=== PATIENT | female | born 1970 | race Caucasian/White ===

== ENCOUNTER 2016-03-23 13:08 | Inpatient (IN) | payer MEDICARE, MEDICAID ==
[~2016-03-23] VITALS: Ht 165.1 cm; Wt 67.3 kg
[~2016-03-23 13:08] MED LIST: ALPR0.5T PO; AMLO10TA2 PO; FENO130C6 PO; FURO80TA3 PO; GABA800T97 PO; INSUINJ37 SUBCUT; LIS10T PO; METF1000 PO; NOR10T PO; OMEP20CA5 PO
[2016-03-23 14:07] LABS: Basophils # (auto) 0 uL; Basophils % (auto) 0.2 % (0.0-2.0); Eosinophils # (auto) 0.1 uL; Eosinophils % (auto) 1.3 % (0.0-7.0); Hematocrit 32.4 % (36.0-46.0); Hemoglobin 10.1 g/dL (12.2-16.2); Lymphocytes # (auto) 0.9 uL; Lymphocytes % (auto) 9.9 % (10.0-50.0); Mean Corpuscular Hemoglobin 29.8 pg (28.0-32.0); Mean Corpuscular Hgb Conc. 31.2 g/dL (32.0-36.0); Mean Corpuscular Volume 95.6 fL (80.0-100.0); Mean Platelet Volume 7.9 fL (7.4-10.4); Monocytes # (auto) 0.4 uL; Monocytes % (auto) 4.5 % (0.0-12.0); Neutrophils # (auto) 7.8 uL; Neutrophils % (auto) 84.1 % (37.0-80.0); Platelet Count (auto) 211 10^3/uL (140-450); Red Cell Distribution Width 15.4 % (11.6-16.0); White Blood Cell 9.2 10^3/uL (4.4-10.8)
[2016-03-23 14:26] LABS: Albumin 2.9 g/dL (3.4-5.0); Calcium 7.8 mg/dL (8.5-10.1); Potassium 4.1 mmol/L (3.5-5.1)
[2016-03-23 14:29] LABS: Bilirubin, Total 0.3 mg/dL (0.2-1.0); Total Protein 7.3 g/dL (6.4-8.2)
[2016-03-23] MEDS ORDERED: ALUM & MAG HYDROX-SIMETH LIQ(MAALOX) 30 ML PO ONE (17:30)
[2016-03-23] MEDS ORDERED: DONNATAL 5ml ORAL Elix (BELLADONNA ALK-PHENOBARB) PO ONE (17:30)
[2016-03-23] MEDS ORDERED: PANTOPRAZOLE SODIUM 40 MG/10 ML VIAL IV ONE (17:30)
[2016-03-23] MEDS ORDERED: ONDANSETRON HCL 4 MG/2 ML VIAL IV ONE (17:30)
[2016-03-23] MEDS ORDERED: LIDOCAINE VISCOUS 2% 15ML UD PO ONE (17:30)
[2016-03-23] MEDS ORDERED: HYDROmorphone HCL 2 MG/ML VL IV ONE (17:30)
[2016-03-23] MEDS ORDERED: ACETAMINOPHEN 325 MG TAB PO PRN (22:00)
[2016-03-23] MEDS ORDERED: DEXTROSE (50%) 50ML SYRG IV PRN (22:00)
[2016-03-23] MEDS: HYDROmorphone HCL 2 MG/ML VL IV PRN (22:57)
[2016-03-23] MEDS: GABAPENTIN 300 MG CAP PO SCH (22:57)
[2016-03-23] MEDS: METOCLOPRAMIDE HCL 5MG/ml INJ 2ml VIAL IV SCH (22:57)
[2016-03-24 00:17] VITALS: BP 154/75
[2016-03-24] MEDS ORDERED: METO25TA62 PO (00:48)
[2016-03-24] MEDS ORDERED: CLON0.2D6 PO (00:48)
[2016-03-24] MEDS: ALPRAZolam 0.25 MG TAB PO PRN ×2 (02:12→14:02)
[2016-03-24] MEDS: HYDROmorphone HCL 2 MG/ML VL IV PRN ×5 (04:00→21:44)
[2016-03-24 05:00] VITALS: BP 142/78
[2016-03-24] MEDS: InsuLIN REG 1unit/0.01ml Soln (100units/ml) SC SCH ×4 (06:00→17:54)
[2016-03-24] MEDS ORDERED: FUROSEMIDE 40 MG TAB PO SCH (06:00)
[2016-03-24] MEDS: METOCLOPRAMIDE HCL 5MG/ml INJ 2ml VIAL IV SCH ×3 (06:07→21:37)
[2016-03-24] MEDS: GABAPENTIN 300 MG CAP PO SCH ×3 (06:08→21:37)
[2016-03-24] MEDS: ACCU-CHEK COMFORT CURVE STRIP VI SCH ×4 (06:31→17:54)
[2016-03-24 07:48] LABS: Basophils # (auto) 0 uL; Basophils % (auto) 0.5 % (0.0-2.0); DEFINITIVE VIEW TRANSMISSION; Eosinophils # (auto) 0.2 uL; Eosinophils % (auto) 1.7 % (0.0-7.0); Hematocrit 26.5 % (36.0-46.0); Hemoglobin 8.2 g/dL (12.2-16.2); Lymphocytes # (auto) 1.6 uL; Lymphocytes % (auto) 18.1 % (10.0-50.0); Mean Corpuscular Hemoglobin 29.9 pg (28.0-32.0); Mean Corpuscular Volume 96.4 fL (80.0-100.0); Mean Platelet Volume 7.9 fL (7.4-10.4); Monocytes # (auto) 0.6 uL; Monocytes % (auto) 6.7 % (0.0-12.0); Neutrophils # (auto) 6.5 uL; Platelet Count (auto) 171 10^3/uL (140-450); Red Cell Distribution Width 15.1 % (11.6-16.0); White Blood Cell 8.9 10^3/uL (4.4-10.8)
[2016-03-24 08:05] LABS: Albumin 2.5 g/dL (3.4-5.0); Calcium 8.2 mg/dL (8.5-10.1); Potassium 3.6 mmol/L (3.5-5.1)
[2016-03-24 08:11] LABS: BUN/Creatinine Ratio 7.4; Bilirubin, Total 0.4 mg/dL (0.2-1.0)
[2016-03-24] MEDS: amLODIPine BESYLATE 5 MG TAB PO SCH (08:52)
[2016-03-24] MEDS: ENOXAPARIN SOD 30 MG/0.3 ML SYRINGE SC SCH (08:53)
[2016-03-24] MEDS: LISINOPRIL 10 MG TAB PO SCH (08:53)
[2016-03-24] MEDS: PANTOPRAZOLE SODIUM 40 MG/10 ML VIAL IV SCH (08:53)
[2016-03-24 09:00] VITALS: BP 187/88
[2016-03-24] MEDS ORDERED: SODIUM CHL 0.9% 1000 ML BAG XX ONE (11:00)
[2016-03-24] MEDS ORDERED: EPOETIN ALFA 10,000 UNIT/1 ML VIAL IV ONE (11:00)
[2016-03-24] MEDS ORDERED: EPOETIN ALFA 2,000 UNIT/1 ML VIAL IV ONE (11:45)
[2016-03-24] MEDS ORDERED: EPOETIN ALFA 4,000 UNIT/ML VL IV ONE (11:45)
[2016-03-24 12:00] LABS: B-Type Natriuretic Peptide 299.64 pg/mL (0-100)
[2016-03-24 12:01] LABS: Temperature: 22.4 C (20.0-25.0)
[2016-03-24] MEDS: CALCIUM ACETATE 667 MG CAP PO SCH ×2 (12:27→17:46)
[2016-03-24] MEDS: HYDROcodone-ACET 5/325MG TAB PO PRN (12:27)
[2016-03-24 13:08] VITALS: BP 157/80
[2016-03-24 17:00] VITALS: BP 139/71
[2016-03-24] MEDS: diphenhdrAMINE HCL 50 MG/1 ML VL IV PRN (20:13)
[2016-03-24 22:00] VITALS: BP 150/74
[2016-03-25] MEDS: ACCU-CHEK COMFORT CURVE STRIP VI SCH ×5 (00:28→22:45)
[2016-03-25] MEDS: HYDROcodone-ACET 5/325MG TAB PO PRN ×3 (00:43→17:48)
[2016-03-25] MEDS: HYDROmorphone HCL 2 MG/ML VL IV PRN ×2 (01:54→06:07)
[2016-03-25] MEDS: diphenhdrAMINE HCL 50 MG/1 ML VL IV PRN ×2 (02:41→08:26)
[2016-03-25 04:54] VITALS: BP 112/58
[2016-03-25] MEDS: InsuLIN REG 1unit/0.01ml Soln (100units/ml) SC SCH ×4 (06:00→18:00)
[2016-03-25] MEDS: GABAPENTIN 300 MG CAP PO SCH ×3 (06:48→22:44)
[2016-03-25] MEDS: METOCLOPRAMIDE HCL 5MG/ml INJ 2ml VIAL IV SCH ×3 (06:48→22:44)
[2016-03-25 07:42] LABS: Basophils # (auto) 0 uL; Basophils % (auto) 0.5 % (0.0-2.0); DEFINITIVE VIEW TRANSMISSION; Eosinophils # (auto) 0.1 uL; Eosinophils % (auto) 1.8 % (0.0-7.0); Hematocrit 25.4 % (36.0-46.0); Hemoglobin 7.9 g/dL (12.2-16.2); Lymphocytes # (auto) 1.2 uL; Mean Corpuscular Hgb Conc. 31.1 g/dL (32.0-36.0); Mean Corpuscular Volume 96.5 fL (80.0-100.0); Mean Platelet Volume 8.4 fL (7.4-10.4); Monocytes # (auto) 0.4 uL; Monocytes % (auto) 5.4 % (0.0-12.0); Neutrophils # (auto) 5.9 uL; Neutrophils % (auto) 76.3 % (37.0-80.0); Platelet Count (auto) 144 10^3/uL (140-450); Red Cell Distribution Width 14.8 % (11.6-16.0); White Blood Cell 7.8 10^3/uL (4.4-10.8)
[2016-03-25 08:00] VITALS: BP 154/74
[2016-03-25 08:18] LABS: Albumin 2.3 g/dL (3.4-5.0); BUN/Creatinine Ratio 8.4; Bilirubin, Total 0.2 mg/dL (0.2-1.0); Calcium 8.1 mg/dL (8.5-10.1); Magnesium 2.3 mg/dL (1.6-2.6); Phosphorus 5.2 mg/dL (2.5-4.90); Potassium 3.9 mmol/L (3.5-5.1); Total Protein 5.8 g/dL (6.4-8.2)
[2016-03-25] MEDS: CALCIUM ACETATE 667 MG CAP PO SCH ×3 (08:26→18:00)
[2016-03-25] MEDS: PANTOPRAZOLE SODIUM 40 MG/10 ML VIAL IV SCH ×2 (10:58→22:44)
[2016-03-25] MEDS: ENOXAPARIN SOD 30 MG/0.3 ML SYRINGE SC SCH (11:00)
[2016-03-25] MEDS: B-COMPLEX W/ C & FOLIC ACID(NEPHROVITE TAB) PO SCH (11:00)
[2016-03-25] MEDS: ONDANSETRON HCL 4 MG/2 ML VIAL IV PRN (11:00)
[2016-03-25] MEDS: LISINOPRIL 10 MG TAB PO SCH (11:01)
[2016-03-25] MEDS: amLODIPine BESYLATE 5 MG TAB PO SCH (11:01)
[2016-03-25 12:00] VITALS: BP 138/75
[2016-03-25] MEDS ORDERED: diphenhdrAMINE HCL 50 MG/1 ML VL IV ONE (14:30)
[2016-03-25 16:00] VITALS: BP 108/56
[2016-03-25] MEDS: ALPRAZolam 0.25 MG TAB PO PRN (17:33)
[2016-03-25] MEDS: HYDROcodone-ACET 10/325MG TAB PO PRN (21:02)
[2016-03-25 22:00] VITALS: BP 140/77
[2016-03-26] MEDS: ALPRAZolam 0.25 MG TAB PO PRN ×3 (01:56→22:03)
[2016-03-26] MEDS: HYDROcodone-ACET 10/325MG TAB PO PRN ×3 (03:00→16:24)
[2016-03-26 05:00] VITALS: BP 108/55
[2016-03-26] MEDS: InsuLIN REG 1unit/0.01ml Soln (100units/ml) SC SCH ×4 (06:00→18:04)
[2016-03-26] MEDS: ACCU-CHEK COMFORT CURVE STRIP VI SCH ×3 (06:22→18:03)
[2016-03-26] MEDS: METOCLOPRAMIDE HCL 5MG/ml INJ 2ml VIAL IV SCH ×3 (06:22→22:04)
[2016-03-26] MEDS: GABAPENTIN 300 MG CAP PO SCH ×3 (06:23→22:03)
[2016-03-26 07:05] LABS: Hematocrit 25.2 % (36.0-46.0); Hemoglobin 7.9 g/dL (12.2-16.2)
[2016-03-26 09:00] VITALS: BP 160/70
[2016-03-26] MEDS: PANTOPRAZOLE SODIUM 40 MG/10 ML VIAL IV SCH ×2 (09:13→22:04)
[2016-03-26] MEDS: ENOXAPARIN SOD 30 MG/0.3 ML SYRINGE SC SCH (09:13)
[2016-03-26] MEDS: amLODIPine BESYLATE 5 MG TAB PO SCH (09:14)
[2016-03-26] MEDS: B-COMPLEX W/ C & FOLIC ACID(NEPHROVITE TAB) PO SCH (09:14)
[2016-03-26] MEDS: CALCIUM ACETATE 667 MG CAP PO SCH ×3 (09:15→18:00)
[2016-03-26] MEDS: LISINOPRIL 10 MG TAB PO SCH (09:15)
[2016-03-26] MEDS ORDERED: diphenhdrAMINE HCL 50 MG/1 ML VL IV ONE (10:45)
[2016-03-26] MEDS ORDERED: MORPHINE SULF INJ 2 MG/ML SYRINGE 1ML IV ONE (10:45)
[2016-03-26] MEDS: ONDANSETRON HCL 4 MG/2 ML VIAL IV PRN ×2 (12:50→18:13)
[2016-03-26 13:00] VITALS: BP 140/67
[2016-03-26] MEDS ORDERED: PANT40TA2 PO (13:20)
[2016-03-26 17:00] VITALS: BP 148/64
[2016-03-26 22:07] VITALS: BP 141/69
[2016-03-28 12:10] LABS: Vitamin D-2 25-Hydroxy 6.7 ng/mL (.)
== END 2016-03-26 23:37 | DRG 73 ==
LOC: EDUNIT# 13:08 → ER 13:12 → WEST WING 13:13
PROVIDERS: ADMIT Nurse Practitioner; ATTEND Internal Medicine
PROC: 5A1D00Z (ICD-10-PCS; principal; 2016-03-25)
DX: E11.43 Type 2 diabetes mellitus with diabetic autonomic (poly)neuropathy (principal); N18.6 End stage renal disease; I13.2 Hypertensive heart and chronic kidney disease with heart failure and with stage 5 chronic kidney disease, or end stage renal disease; E11.65 Type 2 diabetes mellitus with hyperglycemia; E11.22 Type 2 diabetes mellitus with diabetic chronic kidney disease; E11.21 Type 2 diabetes mellitus with diabetic nephropathy; D63.8 Anemia in other chronic diseases classified elsewhere; I50.9 Heart failure, unspecified; E78.5 Hyperlipidemia, unspecified; E86.0 Dehydration; G89.4 Chronic pain syndrome; M47.9 Spondylosis, unspecified; K21.9 Gastro-esophageal reflux disease without esophagitis; K29.70 Gastritis, unspecified, without bleeding; K31.84 Gastroparesis; Z79.4 Long term (current) use of insulin; Z82.3 Family history of stroke; Z83.3 Family history of diabetes mellitus; Z85.41 Personal history of malignant neoplasm of cervix uteri; Z90.49 Acquired absence of other specified parts of digestive tract; Z99.2 Dependence on renal dialysis; Z82.49 Family history of ischemic heart disease and other diseases of the circulatory system; Z79.899 Other long term (current) drug therapy; Z90.710 Acquired absence of both cervix and uterus; Z88.5 Allergy status to narcotic agent; Z84.1 Family history of disorders of kidney and ureter; Z87.81 Personal history of (healed) traumatic fracture
CPT/HCPCS: 36415; 71010; 71250; 74176; 80053; 80061; 82150; 82306; 82728; 82962; 83036; 83540; 83550; 83690; 83735; 83880; 83970; 84100; 84550; 85014; 85018; 85025; 87081; 90935; 93005; 96374; 96375; 97001; C9113; J0885; J1642; J1815; J2405; Q4081